=== PATIENT | male | born 1985 | race Caucasian/White ===

== ENCOUNTER 2016-11-11 06:37 | Emergency (ER) | payer OTHER ==
[~2016-11-11] VITALS: Ht 170.2 cm; Wt 57.2 kg
[~2016-11-11 06:37] MED LIST: AMOXICILLIN875 M1 PO; AUGMENTIN 875-1 EACH PO; AUGMENTIN 875875 MG PO; FLEXERIL10 MG PO; IBUPROFEN600 M1 PO; MOBIC15 M1 PO; MOTRIN800 MG PO; OXYCODONE HCL10 M2 PO; PERCOCET 325 MG1 TA2 PO; PHENERGAN12.5 M2 RC; PROAIR HFA8.5 GM INH; SKELAXIN800 M1 PO; TRAMADOL HCL50 M1 PO; VALIUM5 M1 PO; VICODIN 5-3001 EACH PO; VICODIN5-300 PO; VOLTAREN75 MG PO; ZITHROMAX Z-PA250 M1 PO; ZITHROMAX250 M2 PO; ZOFRAN ODT4 M1 SL
[2016-11-11] MEDS ORDERED: OXYCODONE HCL15 M1 PO (06:43)
--- NOTE | 2016-11-11 07:22 | ED GENERAL ADULT ---
History of Present Illness General Chief Complaint: General Adult Stated Complaint: "FEEKING REALLY SICK" X'S FEW WKS MULTI COMP Source: patient Exam Limitations: no limitations Vital Signs & Intake/Output Vital Signs & Intake/Output Vital Signs Date Time Temp Pulse Resp B/P Pulse O2 O2 Flow FiO2 Ox Delivery Rate 11/11 0834 97.5 58 18 115/57 98 Room Air 11/11 0640 97.7 60 18 134/84 98 Room Air Allergies Coded Allergies: codeine (Intermediate, NAUSEA 05/21/16) Reconcile Medications Albuterol Sulfate (Proair Hfa) 8.5 GM HFA.AER.AD 2-4 PUF INH Q4-6 PRN PRN shortness of breath Amoxicillin 875 MG TABLET 1 TAB PO BID sinusitis Azithromycin (Zithromax) 250 MG TABLET 1 DP PO AD SINUSITIS/BRONCHITIS 2 the first day followed by 1 for days 2-5 Ibuprofen 600 MG TABLET 1 TAB PO Q6PRN PRN pain with food Ondansetron (Zofran Odt) 4 MG TAB.RAPDIS 1 TAB SL TID PRN nausea Oxycodone HCl 10 MG TABLET 1 TAB PO 5XDAILY PAIN (Reported) Oxycodone HCl 15 MG TABLET 1 TAB PO 5 TIMES A DAY PAIN (Reported) Triage Note: PT COMPLAINS OF URI SYMPTOMS FOR THE PAST 3 WEEKS, WENT TO HIS PMD AND THEY GAVE HIME COUGH MEDICINE, STATES THAT HE STILL HAS COUGH PRODUCTIVE OF GREEN SPUTUM, FEELS WEAK AND THAT HIS LEGS ARE SHAKEY. ALSO HAS HAD SLIGHT NAUSEA Triage Nurses Notes Reviewed? yes HPI: Patient presents for evaluation of feeling sick for about 2 weeks. He is experiencing head and sinus pressure along with intermittent nausea intermittent cough with green phlegm dizziness shakiness wobbliness joint pains and sore throat. No associated rashes or diarrhea. He was recently seen by his primary care physician for a cough productive of greenish phlegm. He is not feeling better at this time. Patient states that he has responded well to antibiotics for similar illnesses in the past, particularly when it comes to the sinus pain and pressure. Past History Travel History Traveled to [place] past 21 day No Medical History Any Pertinent Medical History? 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 No Review of Systems Review of Systems Constitutional: Reports: no symptoms. EENTM: Reports: no symptoms. Respiratory: Reports: see HPI. Cardiovascular: Reports: no symptoms. GI: Reports: no symptoms. Genitourinary: Reports: no symptoms. Musculoskeletal: Reports: no symptoms. Skin: Reports: no symptoms. Neurological/Psychological: Reports: no symptoms. Hematologic/Endocrine: Reports: no symptoms. Immunologic/Allergic: Reports: no symptoms. All Other Systems: Reviewed and Negative Physical Exam Physical Exam General Appearance: SEE BELOW Comments: Gen.: Well-nourished, well-developed, no acute respiratory distress. Head: Normocephalic, atraumatic. Eyes: Normal inspection bilaterally Ears: Normal inspection bilaterally Nose: Normal inspection Face: Nontender to percussion Throat/mouth : Moist mucosa Neck: Supple, full range of motion, no goiter Heart: Regular rate and rhythm, no murmurs rubs or gallops Lungs: Clear to auscultation bilaterally with normal air entry Chest: Nontender Back: Normal range of motion Abdomen: Soft, nontender, nondistended, normal bowel sounds Extremities: Normal range of motion grossly, equal radial pulses, no cyanosis clubbing or edema Neurologic: Cranial nerves grossly intact, speech is clear Skin: warm and dry Psychiatric: Calm, cooperative, no apparent delusions or hallucinations Core Measures ACS in differential dx? No CVA/TIA Diagnosis: No Severe Sepsis Present: No Septic Shock Present: No Progress Differential Diagnoses I considered the following diagnoses in my evaluation of the patient: Viral syndrome, bacterial infection Plan of Care: Orders Procedure Date/time Status XRY-CHEST XRAY, PA AND LATERAL 11/11 0558 Active Current Medications Sig/[place] Start time Last Medication Dose Stop Time Status Admin Ondansetron HCl 4 MG ONCE ONE 11/11 0645 UNVr (Zofran) 11/11 07 Initial ED EKG: none Comments: 11/11/2016 8:35:07 AM while patient was being prepared for discharge and began vomiting. Zofran IM administered with improvement. Patient currently feels well and capable of going home. Departure Departure Disposition: HOME OR SELF CARE Condition: Stable Clinical Impression Primary Impression: Viral syndrome Secondary Impressions: Vomiting Qualifiers: Vomiting type: unspecified Vomiting Intractability: non-intractable Nausea presence: with nausea Qualified Code: R11.2 - Nausea with vomiting, unspecified Referrals: LORE MARIE,HAYDE Mcnair (PCP/Family) Additional Instructions: Discontinue your current cough and cold medication. Begin azithromycin. Zofran as needed for nausea or vomiting. Bromfed-DM as needed for cough or cold symptoms. Follow-up with your primary care doctor if not improved in 48-72 hours. Return if any concerns or sudden worsening. Departure Forms: Customer Survey General Discharge Information Prescriptions: Current Visit Scripts Azithromycin (Zithromax) 1 DP PO AD #6 TAB 2 the first day followed by 1 for days 2-5 Ondansetron (Zofran Odt) 1 TAB SL Q6P PRN NAUSEA/VOMITING #10 TAB Critical Care Note Critical Care Note Critical Care Time: non-applicable
--- NOTE | 2016-11-11 07:54 | RADIOLOGY REPORT ---
EXAMINATION: XR CHEST CLINICAL INFORMATION: Productive cough COMPARISON: Chest radiograph 08/07/2016 TECHNIQUE: PA and lateral views of the chest were obtained. FINDINGS: The cardiac mediastinal silhouette is normal in appearance. No effusions or pneumothoraces are identified. The lungs are clear and exhibit a normal pattern pulmonary vasculature. No skeletal abnormalities are identified. IMPRESSION: Normal chest. Lungs clear.
[2016-11-11 08:34] VITALS: BP 115/57
[2016-11-11] MEDS ORDERED: ZOFRAN ODT4 M1 SL (08:36)
[2016-11-11] MEDS ORDERED: ZITHROMAX250 M2 PO (08:36)
== END 2016-11-11 08:45 ==
LOC: ERH 06:37
DX: B34.9 Viral infection, unspecified (principal)
CPT/HCPCS: 96372; J2405

== ENCOUNTER 2016-12-06 21:30 | Emergency (ER) | payer OTHER ==
[~2016-12-06] VITALS: Ht 167.6 cm; Wt 56.7 kg
[~2016-12-06 21:30] MED LIST changes: +OXYCODONE HCL15 M1 PO
--- NOTE | 2016-12-06 23:40 | ED INFLUENZA/URI COMPLAINT ---
History of Present Illness General Chief Complaint: Abdominal Pain/Flank Pain Stated Complaint: ABD PAIN, +N/V Source: patient Exam Limitations: no limitations Vital Signs & Intake/Output Vital Signs & Intake/Output Vital Signs Date Time Temp Pulse Resp B/P Pulse O2 O2 Flow FiO2 Ox Delivery Rate 12/06 2140 98.8 68 20 129/81 100 Room Air ED Intake and Output 12/07 0000 12/06 1200 Intake Total 0 Output Total Balance 0 Intake, Oral 0 Patient 125 lb Weight Allergies Coded Allergies: codeine (Intermediate, NAUSEA 12/06/16) Reconcile Medications Albuterol Sulfate (Proair Hfa) 8.5 GM HFA.AER.AD 2-4 PUF INH Q4-6 PRN PRN shortness of breath Amoxicillin 875 MG TABLET 1 TAB PO BID sinusitis Azithromycin (Zithromax) 250 MG TABLET 1 DP PO AD COPD/BRONCHITIS 2 the first day followed by 1 for days 2-5 Azithromycin (Zithromax) 250 MG TABLET 1 DP PO AD SINUSITIS/BRONCHITIS 2 the first day followed by 1 for days 2-5 Ibuprofen 600 MG TABLET 1 TAB PO Q6PRN PRN pain with food Metoclopramide HCl (Reglan) 10 MG TABLET 1 TAB PO 4 TIMES/DAY PRN NAUSEA 30 minutes before meals and bedtime Ondansetron (Zofran Odt) 4 MG TAB.RAPDIS 1 TAB SL Q6P PRN NAUSEA/VOMITING Ondansetron (Zofran Odt) 4 MG TAB.RAPDIS 1 TAB SL TID PRN nausea Oxycodone HCl 10 MG TABLET 1 TAB PO 5XDAILY PAIN (Reported) Oxycodone HCl 15 MG TABLET 1 TAB PO 5 TIMES A DAY PAIN (Reported) Triage Note: TRIAGE: PT TO ER C/C ABD PAIN WITH N/V/D. ONSET THIS MORNING. TOOK ZOFRAN X 2 DOSES TODAY WITH SOME INITIALY RELIEF AND THEN NO RELIEF. Triage Nurses Notes Reviewed? yes HPI: This patient is a 31-year-old male who presented to the emergency department today for evaluation of nausea and vomiting. He reported that his symptoms began today. He reported all over body aches. When asked if he had abdominal pain he said, "sort of, but not really just nausea." The patient has vomited approximately 8 times today with no blood in the vomitus. He tried taking Zofran at home with no relief of his symptoms. The patient reported sweating and chills. He denied any fevers, chest pain, difficulty breathing, back pain, diarrhea, or any other associated symptoms. The patient's son is currently sick with a GI bug. (LAINA BOYD PA-C) Past History Travel History Traveled to [place] past 21 day No Medical History Any Pertinent Medical History? 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 No (LAINA BOYD PA-C) Review of Systems Review of Systems Constitutional: Reports: see HPI. EENTM: Reports: no symptoms. Respiratory: Reports: no symptoms. Cardiovascular: Reports: no symptoms. GI: Reports: see HPI. Genitourinary: Reports: no symptoms. Musculoskeletal: Reports: see HPI. Skin: Reports: no symptoms. Neurological/Psychological: Reports: no symptoms. All Other Systems: Reviewed and Negative (LAINA BOYD PA-C) Physical Exam Physical Exam Ears, Nose, Throat: normal ENT inspection, moist mucous membrane, hearing grossly normal Comments: Well-developed well-nourished person in mild distress HEENT: Normal EENT exam, head normocephalic, moist mucous membranes PERRLA bilaterally Neck: Supple Back: Normal gait. Normal inspection Respiratory no respiratory distress. Speaking in full sentences Abdomen: Soft, nontender nondistended, no appreciable organomegaly. Normal bowel sounds. Extremity: Normal and equal pulses. Neuro: Alert oriented x3, cranial nerves II through XII grossly intact. Skin: No appreciable rash on exposed skin, skin is warm and dry. Psych: Mood and affect is normal Core Measures Severe Sepsis Present: No Septic Shock Present: No (LAINA BOYD PA-C) Progress Differential Diagnosis: influenza, otitis, pneumonia, pharyngitis, sinusitis Plan of Care: Orders Procedure Date/time Status RAPID VIRAL INFLUENZA A 12/06 2323 Active COMPREHENSIVE METABOLIC PANEL 12/06 2322 Active CBC WITHOUT DIFFERENTIAL 12/06 2322 Active Laboratory Tests 12/06/16 2340: CBC w Diff Pending, WBC Pending, RBC Pending, Hgb Pending, Hct Pending, MCV Pending, MCH Pending, RDW Pending, Plt Count Pending, MPV Pending, Gran % Pending, Lymphocytes % Pending, Monocytes % Pending, Eosinophils % Pending, Basophils % Pending, Absolute Granulocytes Pending, Absolute Lymphocytes Pending , Absolute Monocytes Pending, Absolute Eosinophils Pending, Absolute Basophils Pending, PUBS MCHC Pending Initial ED EKG: none (OLIVER GONZALES,LAINA) Departure Departure Disposition: HOME OR SELF CARE Condition: Stable Clinical Impression Primary Impression: Viral syndrome Referrals: LORE MARIE,HAYDE Mcnair (PCP/Family) Additional Instructions: TAKE REGLAN PRESCRIBED FOR [place]. REST. STAY HYDRATED. FOLOW-UP WITH YOUR PRIMARY CARE PHYSICIAN. Departure Forms: Customer Survey D/C Ins-Appendicitis Exclusion General Discharge Information Prescriptions: Current Visit Scripts Metoclopramide HCl (Reglan) 1 TAB PO 4 TIMES/DAY PRN NAUSEA #12 TAB 30 minutes before meals and bedtime (OLIVER GONZALES,LAINA) PA/MEDICAL DOCTOR NUCLEAR MEDICINE Co-Sign Statement Statement: ED Attending supervision documentation- [] I saw and evaluated the patient. I have also reviewed all the pertinent lab results and diagnostic results. I agree with the findings and the plan of care as documented in the PA's/MEDICAL DOCTOR NUCLEAR MEDICINE's documentation. [X] I have reviewed the ED Record and agree with the PA's/MEDICAL DOCTOR NUCLEAR MEDICINE's documentation. [] Additions or exceptions (if any) to the PAs/MEDICAL DOCTOR NUCLEAR MEDICINE's note and plan are summarized below: [] (VANIA MARIE,SARA Au)
[2016-12-06 23:56] LABS: ABSOLUTE BASOPHIL COUNT 0 /CUMM (0.0-0.2); ABSOLUTE EOSINOPHIL COUNT 0.2 /CUMM (0.0-0.7); ABSOLUTE GRANULOCYTE CT 12.9 /CUMM (1.4-6.5); ABSOLUTE MONOCYTE COUNT 0.6 /CUMM (0.10-0.60); BASOPHIL % 0.2 % (0.0-2.0); EOSINOPHIL % 1.4 % (0-5); GRANULOCYTE % 88.1 % (42.2-75.2); HEMATOCRIT 52.9 % (42-52); MEAN CORPUSCULAR HGB 29.5 PG (27.0-31.0); MEAN CORPUSCULAR VOLUME 86.8 FL (80.0-94.0); MEAN PLATELET VOLUME 8.9 FL (7.4-10.4); PLATELET COUNT 186 /CUMM (130-400); RBC DISTRIBUTION WIDTH 12.7 % (11.5-14.5); RED BLOOD CELL CT 6.09 /CUMM (4.70-6.10); WHITE BLOOD CELL COUNT 14.7 /CUMM (4.8-10.8)
[2016-12-07] MEDS ORDERED: REGLAN10 M1 PO (00:12)
[2016-12-07 01:20] VITALS: BP 120/74
== END 2016-12-07 01:20 ==
LOC: ERH 21:30
PROVIDERS: Physician Assistant
DX: B34.9 Viral infection, unspecified (principal)
CPT/HCPCS: 87804; 87804-59; 96361; 96374; J2765

== ENCOUNTER 2017-02-25 22:05 | Emergency (ER) | payer OTHER ==
[~2017-02-25] VITALS: Ht 170.2 cm; Wt 59.0 kg
[~2017-02-25 22:05] MED LIST changes: +REGLAN10 M1 PO
[2017-02-25 22:09] VITALS: BP 117/62
--- NOTE | 2017-02-25 22:53 | ED INFLUENZA/URI COMPLAINT ---
History of Present Illness General Chief Complaint: Upper Respiratory Sx/Fever Stated Complaint: HEADACHE,SINUS PRESSURE Source: patient Exam Limitations: no limitations Vital Signs & Intake/Output Vital Signs & Intake/Output Vital Signs Date Time Temp Pulse Resp B/P B/P Pulse O2 O2 Flow FiO2 Mean Ox Delivery Rate 02/25 2311 98 Room Air 02/259 97.9 44 20 117/62 97 Room Air ED Intake and Output 02/26 0000 02/25 1200 Intake Total Output Total Balance Patient 130 lb Weight Allergies Coded Allergies: codeine (Intermediate, NAUSEA 12/06/16) Reconcile Medications Albuterol Sulfate (Proair Hfa) 8.5 GM HFA.AER.AD 2-4 PUF INH Q4-6 PRN PRN shortness of breath Amoxicillin 875 MG TABLET 1 TAB PO BID sinusitis Amoxicillin/Potassium Clav (Augmentin 875-125 Tablet) 875 MG-125 MG TABLET 1 TAB PO BID SINUSITIS Azithromycin (Zithromax) 250 MG TABLET 1 DP PO AD COPD/BRONCHITIS 2 the first day followed by 1 for days 2-5 Azithromycin (Zithromax) 250 MG TABLET 1 DP PO AD SINUSITIS/BRONCHITIS 2 the first day followed by 1 for days 2-5 Fluticasone Propionate (Flonase Allergy Relief) 50 MCG/ACTUATION SPRAY.SUSP 1 SPRAY IN QDAY ALLERGIC RHINITIS Ibuprofen 600 MG TABLET 1 TAB PO Q6PRN PRN pain with food Loratadine (Claritin) 10 MG TABLET 1 TAB PO DAILY ALLERGIES Metoclopramide HCl (Reglan) 10 MG TABLET 1 TAB PO 4 TIMES/DAY PRN NAUSEA 30 minutes before meals and bedtime Ondansetron (Zofran Odt) 4 MG TAB.RAPDIS 1 TAB SL Q6P PRN NAUSEA/VOMITING Ondansetron (Zofran Odt) 4 MG TAB.RAPDIS 1 TAB SL TID PRN NAUSEA Ondansetron (Zofran Odt) 4 MG TAB.RAPDIS 1 TAB SL TID PRN nausea Oxycodone HCl 10 MG TABLET 1 TAB PO 5XDAILY PAIN (Reported) Oxycodone HCl 15 MG TABLET 1 TAB PO 5 TIMES A DAY PAIN (Reported) Prednisone 50 MG TABLET 1 TAB PO DAILY BRONCHITIS Triage Note: PT TO ED C/O HEADACHE AND SINUS PRESSURE TODAY. +NAUSEA. TOOK ZOFRAN ODT ART HOME WITH GOOD RELIEF "I THINK I NEED SOME MORE OF THOSE AND MAYBE SOME ANTIBIOTICS FOR MY SINUSES" "AND I NEED A NOTE FOR WORK" Triage Nurses Notes Reviewed? yes HPI: 32 yo gentleman, awoke today with sinus congestion, cough with phlegm, no fever. He notes that he still smokes. He has no chest pain, shortness of breath, nausea, vomiting, diarrhea. Past History Travel History Traveled to [place] past 21 day No Medical History Any Pertinent Medical History? 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 No Review of Systems Review of Systems Constitutional: Reports: no symptoms. EENTM: Reports: no symptoms. Respiratory: Reports: no symptoms. Cardiovascular: Reports: no symptoms. GI: Reports: no symptoms. Genitourinary: Reports: no symptoms. Musculoskeletal: Reports: no symptoms. Skin: Reports: no symptoms. Neurological/Psychological: Reports: no symptoms. Hematologic/Endocrine: Reports: no symptoms. Immunologic/Allergic: Reports: no symptoms. All Other Systems: Reviewed and Negative Physical Exam Physical Exam General Appearance: well developed/nourished, mild distress Head: atraumatic, normal appearance Eyes: Bilateral: normal appearance. Ears, Nose, Throat: pharyngeal erythema, bilateral sinus tenderness with inflamed turbinates Neck: normal inspection, supple, full range of motion Respiratory: chest non-tender, no respiratory distress, mild end expiratory wheeze Cardiovascular: regular rate/rhythm Gastrointestinal: normal bowel sounds, soft, non-tender, no organomegaly Back: normal inspection, normal range of motion Extremities: normal inspection, normal capillary refill, normal range of motion, no edema Neurologic/Psych: no motor/sensory deficits, awake, alert, oriented x 3 Skin: intact, normal color, warm/dry Core Measures Severe Sepsis Present: No Septic Shock Present: No Progress Differential Diagnosis: otitis, pharyngitis, sinusitis Plan of Care: mild wheeze on exam... will rx with abx, steroids, nebs. ... encouraged close follow up. Initial ED EKG: none Departure Departure Disposition: HOME OR SELF CARE Condition: Stable Clinical Impression Primary Impression: Sinusitis Secondary Impressions: Bronchitis Referrals: LORE MARIE,HAYDE Mcnair (PCP/Family) Departure Forms: Customer Survey General Discharge Information Prescriptions: Current Visit Scripts Amoxicillin/Potassium Clav (Augmentin 875-125 Tablet) 1 TAB PO BID #20 TAB Prednisone 1 TAB PO DAILY #5 TAB Ondansetron (Zofran Odt) 1 TAB SL TID PRN NAUSEA #10 TAB Loratadine (Claritin) 1 TAB PO DAILY #30 TAB Fluticasone Propionate (Flonase Allergy Relief) 1 SPRAY IN QDAY #1 SPRAY Ref 2
[2017-02-25] MEDS ORDERED: ZOFRAN ODT4 M1 SL (23:05)
[2017-02-25] MEDS ORDERED: AUGMENTIN 875-1 EACH PO (23:05)
[2017-02-25] MEDS ORDERED: CLARITIN10 M1 PO (23:05)
[2017-02-25] MEDS ORDERED: FLONASE ALLERG9.9 ML IN (23:05)
[2017-02-25] MEDS ORDERED: PREDNISONE50 M1 PO (23:05)
== END 2017-02-25 23:12 ==
LOC: ERH 22:05
DX: J32.9 Chronic sinusitis, unspecified (principal); J40 Bronchitis, not specified as acute or chronic; F17.210 Nicotine dependence, cigarettes, uncomplicated